=== PATIENT | male | born 1995 | race Caucasian/White ===

== ENCOUNTER 2024-10-16 03:24 | Emergency (ER) | payer OTHER, SELFPAY ==
[2024-10-16 03:25] VITALS: BP 146/78; PULSE 92; RESP 17; TEMP 36.9; O2SAT 100; BMI 27.1
--- NOTE | 2024-10-16 04:16 | EDS_ITS ---
HPI History of Present Illness Chief Complaint: Palpitations Narrative Narrative: Chief complaint and HPI: Palpitations. 29-year-old male with no significant past medical history presents for evaluation of episodic palpitations. Patient states for the past couple weeks he has been having intermittent palpitations with occasional associated burning in his chest. He states that it last several minutes and then disappears. He denies chest pain. States he developed the palpitations again this evening which is why EMS was called. Denies any chest pain or burning sensation tonight. Denies any fever, chills, shortness of breath cough, abdominal pain, nausea, vomiting. Denies any tobacco abuse. States he has been eating and drinking well. Denies illicit drug abuse. Review of systems: See HPI Medications: As listed on the chart Allergies: As listed on the chart PFSH: Per chart Vital signs: As listed on the chart. Reviewed. Physical exam: Gen: A&O x3, NAD Head: Normocephalic, atraumatic Eyes: No sclera icterus, conjunctiva clear ENT: Moist mucous membranes Neck: Trachea midline, No JVD CV: RRR, no murmurs, no peripheral edema Resp: Lungs CTA BL, no w/r/c GI: Abd soft, non-distended, non-tender, no r/r/g Musc: Full ROM, no deformity Skin: Warm, dry Neuro: Alert, oriented, grossly intact, sensation intact Psych: Cooperative, appropriate mood and affect [facility] Home Medications ?Medication ?Instructions ?Recorded ?Last Taken ?Type NK 10/16/24 Unknown History Allergy/AdvReac Type Severity Reaction Status Date / Time No Known Allergies Allergy Verified 10/16/24 03:26 Surgical History (Updated 10/16/24 @ 03:27 by Ruby Mcdonald) History of dental surgery Social History Smoking Status: Never smoker EXAM Physical Exam Const Vital Signs: 10/16/24 03:25 10/16/24 03:25 10/16/24 04:44 Temperature 98.4 F Temperature Source Oral Pulse Rate 92 78 Respiratory Rate 17 19 H Respiratory Effort Normal Non-Labored Blood Pressure 146/78 H 150/87 H Blood Pressure Mean 100 108 Pulse Ox 100 100 Oxygen Delivery Method Room Air Room Air 10/16/24 05:00 10/16/24 05:34 Temperature 98.1 F Temperature Source Pulse Rate 79 80 Respiratory Rate 19 H 17 Respiratory Effort Blood Pressure 136/58 H 133/80 H Blood Pressure Mean 84 97 Pulse Ox 100 99 Oxygen Delivery Method Room Air MDM MDM MDM Narrative Medical decision making narrative: 29-year-old male with no significant past medical history presents for evaluation of episodic palpitations. Differential diagnosis includes but is not limited to arrhythmia, electrolyte abnormality, hypothyroidism, dehydration, suspect less likely ACS or PE. On presentation, patient's vitals are stable other than mild hypertension. On the monitor, patient intermittently has PVCs. NS bolus and cardiac workup ordered. EKG and chest x-ray reviewed see below. CBC without leukocytosis or anemia. D-dimer unremarkable. BMP relatively unremarkable except for mild hypokalemia. P.o. potassium ordered. Magnesium level unremarkable. TSH level unremarkable. Troponin unremarkable. Patient has remained asymptomatic here in the emergency department. No clear etiology to explain patient's intermittent palpitations. May be having intermittent arrhythmias. Patient will be discharged home with a 48-hour Holter monitor. Follow-up with PCP as well as cardiology. Return precautions explained. He confirmed understanding the plan EKG: Interpreted by me/EM physician: EKG shows normal sinus rhythm with incomplete right bundle branch block. No acute ischemic changes. Heart rate 84 Diagnostic: Interpreted by me/EM physician: Chest x-ray without pneumonia, effusion, cardiomegaly, pneumothorax Impression: 1. Episodic palpitation 2. Mild hypokalemia Lab Data Labs: Laboratory Results - last 24 hr 10/16/24 04:20 WBC 5.4 RBC 4.59 L Hgb 13.9 Hct 38.7 L MCV 84.3 MCH 30.3 MCHC 35.9 RDW Std Deviation 39.8 RDW Coeff of Angelina 13.2 Plt Count 264 MPV 10.0 Immature Gran % (Auto) 0.200 Neut % (Auto) 53.5 Lymph % (Auto) 32.3 Jennings % (Auto) 11.0 H Eos % (Auto) 2.6 Baso % (Auto) 0.4 Absolute Neuts (auto) 2.9 Absolute Lymphs (auto) 1.73 Nucleated RBC % 0 D-Dimer Quant (PE/DVT) < 0.27 L Sodium 141 Potassium 3.2 L Chloride 108 H Carbon Dioxide 25.0 Anion Gap 8 BUN 12 Creatinine 0.74 Estim Creat Clear Calc 145.96 Est GFR (MDRD) Af Amer 160 Est GFR (MDRD) Non-Af 132 BUN/Creatinine Ratio 16.3 Glucose 104 Calcium 9.2 Magnesium 2.1 Troponin I High Sens < 3 L TSH 2.490 Radiography Diagnostic Testing: Clinical Impression(s) from Imaging Studies Chest X-Ray 10/16/24 04:28 IMPRESSION: NEGATIVE CHEST. Reading Location: [facility] Discharge Plan Triage Chief Complaint: Palpitations ED Provider: David Campos Dx/Rx/DC Orders Clinical Impression: Palpitations Instructions: Understanding Heart Palpitations, ED Palpitations Prescriptions: No Action NK Primary Care Provider: Care Physician,No Primary Referrals: Addy Latham MD [Med Staff - Active Staff] - 3-5 Days Justo Espinal MD [Med Staff - Active Staff] - 3-5 Days Care Physician,No Primary [Primary Care Provider] - Activity Restrictions/Additional Instructions: Follow-up with PCP. If you do not have 1 follow-up with the 1 provided above. Follow-up with cardiology. Return back to the ED if symptoms change or worsen. Wear your Holter monitor. Print Language: Yoruba Disposition Disposition: Home, Self Care
[2024-10-16] MEDS: 0.9% Normal Saline (1000mL) 1,000 ML 1000 ML IV (04:19)
--- NOTE | 2024-10-16 04:28 | RAD_ITS ---
PROCEDURE: CHEST 1 VIEW (PORTABLE) REASON FOR EXAM: 29-year-old male, heart palpitations. TECHNIQUE: Frontal view of the chest. COMPARISON: None. FINDINGS: The heart size is normal. The lungs are clear. No focal consolidation, pleural effusion or pneumothorax. The bones are unremarkable. RAD/Chest 1 View (Portable) IMPRESSION: NEGATIVE CHEST. Reading Location: [id number]
[2024-10-16 04:34] LABS: Absolute Lymphocyte Count 1.73 X10^3/uL (0.83-4.51); Absolute Neutrophil Count 2.9 X10^3/uL (2.0-7.7); Basophil# 0.02 X10^3/uL; Basophil% 0.4 % (0-1); Eosinophil# 0.14 X10^3/uL; Eosinophils% 2.6 % (0-5); Hematocrit 38.7 % (40-54); Hemoglobin 13.9 g/dL (13.0-16.5); Lymphocyte # 1.73 X10^3/ul (0.83-4.51); Lymphocyte % 32.3 % (19-41); Mean Corp Hgb Conc 35.9 g/dL (32-36); Mean Corpuscular Hgb 30.3 pg (27.0-32.0); Mean Corpuscular Volume 84.3 fL (80-94); Monocyte# 0.59 X10^3/uL; NRBC Flagged by Analyzer 0 % (0-5); Neutrophil # 2.87 X10^3/uL (2.7-7.7); Neutrophil % 53.5 % (47-70); Platelet Count 264 K/mm3 (150-450); RBC Distribution Width CV 13.2 % (11.6-14.6); RBC Distribution Width SD 39.8 fl (35.1-43.9); Red Blood Count 4.59 M/mm3 (4.6-6.2); White Blood Count 5.4 K/mm3 (4.4-11.0)
[2024-10-16 04:44] VITALS: BP 150/87; PULSE 78; RESP 19; O2SAT 100
[2024-10-16 05:00] VITALS: BP 136/58; PULSE 79; RESP 19; O2SAT 100
[2024-10-16 05:00] LABS: Anion Gap 8 (5-15); BUN 12 mg/dL (7-18); BUN/Creat Ratio 16.3 RATIO (10-20); Calcium,Total 9.2 mg/dL (8.5-10.1); Chloride 108 mmol/L (98-107); Creatinine, Serum 0.74 mg/dL (0.70-1.30); EST Glomerular Filtration Rate 132 mL/min (>60); Est Glom Filt Rate - Afr Amer 160 mL/min (>60); Estimated Creatinine Clearance 145.96 ml/min; Glucose 104 mg/dL (74-106); Magnesium 2.1 mg/dL (1.6-2.6); Potassium 3.2 mmol/L (3.5-5.1); Sodium Level 141 mmol/L (136-145); Troponin-I HS < 3 pg/mL (3.0-78.0)
[2024-10-16 05:01] LABS: D-Dimer Quantitative (DVT/PE) < 0.27 FEU/ug/m (0.27-0.49)
[2024-10-16] MEDS: Potassium Chloride Oral Soln 20 MEQ/15 ML UDC 40 MEQ PO (05:20)
[2024-10-16 05:34] VITALS: BP 133/80; PULSE 80; RESP 17; TEMP 36.7; O2SAT 99
== END 2024-10-16 05:57 | disposition home or self-care (01) ==
PROVIDERS: Emergency Provider Surgery; Visit Provider Surgery
DX: R00.2 Palpitations (principal); E87.6 Hypokalemia; I49.3 Ventricular premature depolarization; I45.10 Unspecified right bundle-branch block
CPT/HCPCS: 71045; 80048; 83735; 84443; 84484; 85025; 85379; 93005; 96360; 99285; A4216

== ENCOUNTER → 2024-10-16 | Outpatient (CLI) | payer SELFPAY | END | disposition home or self-care (01) | LOC: CVS 05:23 | PROVIDERS: Referring Provider Surgery; Visit Provider Surgery | DX: R00.2 Palpitations (principal) | CPT/HCPCS: 93225; 93226 ==